=== PATIENT | female | born 1950 | race Caucasian/White ===

== ENCOUNTER 2017-05-10 17:34 | Emergency (ER) | payer MEDICARE ==
[~2017-05-10] VITALS: Ht 167.6 cm; Wt 64.0 kg
[~2017-05-10 17:34] MED LIST: AMIT50 PO; AMIT75 PO; BENTYL20 MG PO; Bactrim Ds Tab1 EACH PO; Bentyl10 MG PO; CHOL10002 PO; CLON1 PO; Cipro500 MG PO; Crutch1 EACH MISC; DICL25ER PO; DULO30 PO; DULO60 PO; ESTMEDA PO; ESTR2 PO; GABA300 PO; HYDACE5325 PO; HYDACE7.5 PO; HYOS.125 SL; LACT10SY PO; MEDR2.5 PO; MEDR5 PO; NAPR500 PO; Norco 5-325 Ta1 EACH PO; OMEP40CA12 PO; OXYACE5T PO; Omeprazole20 M1 PO; PANT40 PO; PROM25 PO; PROP10 PO; Percocet 10-321 EACH PO; Percocet 5-3251 EACH PO; Pyridium200 MG PO; RANI150 PO; RXTRAM50 PO; SULTRIDS PO; TOPI100 PO; Ultram50 MG PO; VALACYCLOVIR1000 MG PO; [UNRECOGNIZED DRUG - REMARK]
== END 2017-05-10 21:01 | disposition home or self-care (01) ==
LOC: ER 17:34
DX: S61.210A Laceration without foreign body of right index finger without damage to nail, initial encounter (principal); Z88.5 Allergy status to narcotic agent; Z91.09 Other allergy status, other than to drugs and biological substances; Z88.6 Allergy status to analgesic agent; Z79.899 Other long term (current) drug therapy; W26.0XXA Contact with knife, initial encounter
CPT/HCPCS: 12001; 99282

== ENCOUNTER 2017-06-29 11:27 | Emergency (ER) | payer MEDICARE ==
[~2017-06-29] VITALS: Ht 167.6 cm; Wt 63.5 kg
== END 2017-06-29 12:32 | disposition home or self-care (01) ==
LOC: ER 11:27
DX: S90.122A Contusion of left lesser toe(s) without damage to nail, initial encounter (principal); Z88.5 Allergy status to narcotic agent; Z91.09 Other allergy status, other than to drugs and biological substances; Z88.8 Allergy status to other drugs, medicaments and biological substances; Z79.899 Other long term (current) drug therapy; Z86.73 Personal history of transient ischemic attack (TIA), and cerebral infarction without residual deficits; W22.8XXA Striking against or struck by other objects, initial encounter
CPT/HCPCS: 73660; 99283

== ENCOUNTER 2017-07-18 17:33 | Inpatient (IN) | payer MEDICARE ==
[~2017-07-18] VITALS: Ht 165.1 cm; Wt 68.4 kg
[2017-07-18 17:50] LABS: Calcium, Ionized (POC) 1.13 mmol/L (1.10-1.46); Chloride (POC) 107 mmol/L (98-108); Creatinine (POC) 0.9 mg/dL (0.6-1.0); Glucose (ISTAT POC) 117 mg/dL (70-99); Hemoglobin (POC) 11.6 g/dL (12.0-16.0); Potassium (POC) 3.9 mmol/L (3.5-5.5); Sodium (POC) 139 mmol/L (135-148); Total CO2 (POC) 23 mmol/L (21-32)
[2017-07-18 18:03] LABS: BASOPHILS ABSOLUTE AUTO 0.03 K/mm3 (0.00-0.23); BASOPHILS PERCENT AUTO 1 % (0-2); EOSINOPHILS ABSOLUTE AUTO 0.07 K/mm3 (0.00-0.68); EOSINOPHILS PERCENT AUTO 1 % (0-6); Hematocrit 37.8 % (33.0-51.0); IMMATURE GRAN ABSOLUTE AUTO 0.01 K/mm3 (0.00-0.10); IMMATURE GRAN PERCENT AUTO 0 % (0-1); LYMPHOCYTES ABSOLUTE AUTO 1.08 K/mm3 (0.84-5.20); LYMPHOCYTES PERCENT AUTO 19 % (21-46); MONOCYTES ABSOLUTE AUTO 0.35 K/mm3 (0.16-1.47); MONOCYTES PERCENT AUTO 6 % (4-13); Mean Corpuscular HGB 29.9 pg (26.0-34.0); Mean Corpuscular HGB Conc 31.7 g/dL (31.5-36.5); Mean Corpuscular Volume 94 fL (80-100); Mean Platelet Volume 9.8 fL (9.1-12.4); NEUTROPHILS ABSOLUTE AUTO 4.12 K/mm3 (1.96-9.15); NEUTROPHILS PERCENT AUTO 73 % (41-73); Platelet Count 149 K/mm3 (150-400); RDW Coefficient Variation 13.1 % (11.7-14.2); RDW Standard Deviation 45.1 fL (35.1-46.3); Red Blood Cell Count 4.02 M/mm3 (3.80-5.20); White Blood Cell Count 5.66 K/mm3 (4.00-11.30)
[2017-07-18 18:08] LABS: PCO2 Arterial 26.2 mmHg (35-45); PO2 Arterial 161 mmHg (80-100); pH Blood Arterial 7.51 (7.35-7.45)
[2017-07-18 18:16] LABS: Alanine Aminotransfer (ALT/SGP 24 U/L (12-78); Albumin, Blood 3.3 g/dL (3.4-5.0); Alk Phos 92 U/L (50-136); Anion Gap 9 mmol/L (6-16); Aspartate Aminotrans (AST/SGOT 20 U/L (12-37); Bilirubin, Total 0.3 mg/dL (0.1-1.0); Blood Urea Nitrogen 9 mg/dL (8-24); Bun/Creatinine Ratio 9.9 (12.0-20.0); CO2, Blood 23 mmol/L (21-32); Calcium, Blood 8.1 mg/dL (8.5-10.1); Chloride, Blood 110 mmol/L (98-108); Creatinine, Blood 0.91 mg/dL (0.40-1.00); Ethanol (Alcohol), Blood, Med <3 mg/dL; Globulin, Blood 3.3 g/dL (2.2-4.0); Glomerular Filtration Rate >60 (60-); Glucose, Blood 114 mg/dL (70-99); Salicylate <1.7 mg/dL (2.8-20.0); Sodium, Blood 142 mmol/L (136-145); Total Protein, Blood 6.6 g/dL (6.4-8.2); Troponin I <0.015 ng/mL (0.000-0.040)
[2017-07-18 18:24] LABS: Acetaminophen, Random <2.0 ug/mL (10.0-30.0)
[2017-07-18 18:32] LABS: Source, Urine Catheter
[2017-07-18 18:44] LABS: Appearance, Urine Clear (Clear); Bilirubin, Urine Neg (Neg); Blood, Urine Neg (Neg); Color, Urine Yellow (P-Yellow); Glucose Qualitative, Urine Neg (Neg); Ketones, Urine Neg (Neg); Leukocyte Esterase, Urine Neg (Neg); Nitrite, Urine Neg (Neg); Protein, Urine Neg (Neg); Urobilinogen, Urine NORM (Normal)
[2017-07-18 19:03] LABS: U Amphetamine Screen Not Detected; U Barbituate Screen Not Detected; U Benzodiazapine Screen Not Detected; U Buprenorphine Screen Not Detected; U Cannabinoids Screen Not Detected; U Cocaine Screen Not Detected; U Methadone Screen Not Detected; U Methamphetamine Screen Not Detected; U Opiates Screen Not Detected; U Oxycodone Screen Not Detected; U Phencyclidine Screen Not Detected; U Propoxyphene Screen Not Detected
[2017-07-18 21:40] LABS: PCO2 Arterial 30.2 mmHg (35-45); pH Blood Arterial 7.52 (7.35-7.45)
[2017-07-18 21:41] LABS: PO2 Arterial 82.8 mmHg (80-100)
[2017-07-18 23:26] LABS: Magnesium, Blood 2.2 mg/dL (1.6-2.4)
[2017-07-19 03:32] LABS: BASOPHILS ABSOLUTE AUTO 0.01 K/mm3 (0.00-0.23); BASOPHILS PERCENT AUTO 0 % (0-2); EOSINOPHILS ABSOLUTE AUTO 0.01 K/mm3 (0.00-0.68); EOSINOPHILS PERCENT AUTO 0 % (0-6); Hematocrit 33.3 % (33.0-51.0); Hemoglobin 10.8 g/dL (11.5-16.0); IMMATURE GRAN ABSOLUTE AUTO 0.02 K/mm3 (0.00-0.10); IMMATURE GRAN PERCENT AUTO 0 % (0-1); LYMPHOCYTES ABSOLUTE AUTO 0.78 K/mm3 (0.84-5.20); LYMPHOCYTES PERCENT AUTO 16 % (21-46); MONOCYTES PERCENT AUTO 6 % (4-13); Mean Corpuscular HGB 29.8 pg (26.0-34.0); Mean Corpuscular HGB Conc 32.4 g/dL (31.5-36.5); Mean Corpuscular Volume 92 fL (80-100); Mean Platelet Volume 9.9 fL (9.1-12.4); NEUTROPHILS ABSOLUTE AUTO 3.83 K/mm3 (1.96-9.15); NEUTROPHILS PERCENT AUTO 77 % (41-73); Platelet Count 139 K/mm3 (150-400); RDW Coefficient Variation 13.3 % (11.7-14.2); RDW Standard Deviation 44.9 fL (35.1-46.3); Red Blood Cell Count 3.62 M/mm3 (3.80-5.20); White Blood Cell Count 4.95 K/mm3 (4.00-11.30)
[2017-07-19 03:53] LABS: Alanine Aminotransfer (ALT/SGP 21 U/L (12-78); Albumin, Blood 2.7 g/dL (3.4-5.0); Albumin/Globulin Ratio 0.9 (0.8-1.8); Alk Phos 76 U/L (50-136); Anion Gap 8 mmol/L (6-16); Aspartate Aminotrans (AST/SGOT 16 U/L (12-37); Bilirubin, Total 0.5 mg/dL (0.1-1.0); Blood Urea Nitrogen 7 mg/dL (8-24); Bun/Creatinine Ratio 8.7 (12.0-20.0); CO2, Blood 24 mmol/L (21-32); Calcium, Blood 7.3 mg/dL (8.5-10.1); Chloride, Blood 109 mmol/L (98-108); Creatinine, Blood 0.81 mg/dL (0.40-1.00); Glomerular Filtration Rate >60 (60-); Glucose, Blood 120 mg/dL (70-99); Potassium, Blood 3.6 mmol/L (3.5-5.5); Sodium, Blood 141 mmol/L (136-145); Total Protein, Blood 5.7 g/dL (6.4-8.2)
[2017-07-19 05:19] LABS: PCO2 Arterial 29.8 mmHg (35-45); PO2 Arterial 82.5 mmHg (80-100); pH Blood Arterial 7.56 (7.35-7.45)
[2017-07-19 13:01] LABS: Magnesium, Blood 2.1 mg/dL (1.6-2.4); Potassium, Blood 3.4 mmol/L (3.5-5.5)
[2017-07-20 04:09] LABS: Anion Gap 6 mmol/L (6-16); Blood Urea Nitrogen 5 mg/dL (8-24); Bun/Creatinine Ratio 5.2 (12.0-20.0); CO2, Blood 24 mmol/L (21-32); Calcium, Blood 7.3 mg/dL (8.5-10.1); Chloride, Blood 118 mmol/L (98-108); Creatinine, Blood 0.95 mg/dL (0.40-1.00); Glomerular Filtration Rate >60 (60-); Glucose, Blood 83 mg/dL (70-99); Potassium, Blood 3.9 mmol/L (3.5-5.5); Sodium, Blood 148 mmol/L (136-145)
== END 2017-07-22 15:52 | DRG 917 ==
LOC: ER 17:33 → ICUW 17:34 → MEDS 07-20 16:00
PROVIDERS: Emergency Medicine; Internal Medicine; Internal Medicine Pulmonary Disease
PROC: 5A1935Z Respiratory Ventilation, Less than 24 Consecutive Hours (ICD-10-PCS; principal; 2017-07-18)
PROC: 0BH17EZ Insertion of Endotracheal Airway into Trachea, Via Natural or Artificial Opening (ICD-10-PCS; 2017-07-18)
PROC: 3E0234Z Introduction of Serum, Toxoid and Vaccine into Muscle, Percutaneous Approach (ICD-10-PCS; 2017-07-18)
DX: T43.012A Poisoning by tricyclic antidepressants, intentional self-harm, initial encounter (principal); J96.00 Acute respiratory failure, unspecified whether with hypoxia or hypercapnia; F32.9 Major depressive disorder, single episode, unspecified; F41.9 Anxiety disorder, unspecified; Z23 Encounter for immunization; I10 Essential (primary) hypertension; F60.9 Personality disorder, unspecified
CPT/HCPCS: 31720; 36415; 36600; 51702; 70450; 71045; 71046; 72125; 80047; 80048; 80053; 81003; 81025; 82803; 83735; 84132; 84145; 84443; 84484; 85014; 85025; 93005; 93010; 94002; 94003; 94667; 96361; 96374; 96375; 96376; 99291; 99292; G0480; J0330; J1650; J2001; J2060; J2250; J3480; J7030; J7070; J7120

== ENCOUNTER 2017-09-14 21:00 | Emergency (ER) | payer MEDICARE ==
[~2017-09-14] VITALS: Ht 167.6 cm; Wt 63.5 kg
[2017-09-14 21:46] LABS: BASOPHILS ABSOLUTE AUTO 0.05 K/mm3 (0.00-0.23); BASOPHILS PERCENT AUTO 1 % (0-2); EOSINOPHILS ABSOLUTE AUTO 0.13 K/mm3 (0.00-0.68); EOSINOPHILS PERCENT AUTO 2 % (0-6); Hematocrit 41.9 % (33.0-51.0); Hemoglobin 14.2 g/dL (11.5-16.0); IMMATURE GRAN ABSOLUTE AUTO 0.01 K/mm3 (0.00-0.10); IMMATURE GRAN PERCENT AUTO 0 % (0-1); LYMPHOCYTES ABSOLUTE AUTO 1.86 K/mm3 (0.84-5.20); LYMPHOCYTES PERCENT AUTO 31 % (21-46); MONOCYTES ABSOLUTE AUTO 0.52 K/mm3 (0.16-1.47); MONOCYTES PERCENT AUTO 9 % (4-13); Mean Corpuscular HGB 31.3 pg (26.0-34.0); Mean Corpuscular HGB Conc 33.9 g/dL (31.5-36.5); Mean Corpuscular Volume 92 fL (80-100); Mean Platelet Volume 10.4 fL (9.1-12.4); NEUTROPHILS PERCENT AUTO 58 % (41-73); Platelet Count 208 K/mm3 (150-400); RDW Coefficient Variation 13.2 % (11.7-14.2); RDW Standard Deviation 45.1 fL (35.1-46.3); Red Blood Cell Count 4.54 M/mm3 (3.80-5.20); White Blood Cell Count 6.07 K/mm3 (4.00-11.30)
[2017-09-14 22:05] LABS: Albumin/Globulin Ratio 1.1 (0.8-1.8); Bilirubin, Total 0.8 mg/dL (0.1-1.0); Bun/Creatinine Ratio 9.3 (12.0-20.0); Calcium, Blood 9.3 mg/dL (8.5-10.1); Creatinine, Blood 1.07 mg/dL (0.40-1.00); Globulin, Blood 3.6 g/dL (2.2-4.0); Potassium, Blood 3.4 mmol/L (3.5-5.5); Total Protein, Blood 7.6 g/dL (6.4-8.2)
[2017-09-14 22:55] LABS: Source, Urine Clean Catch
[2017-09-14 22:59] LABS: Bilirubin, Urine Neg (Neg); Blood, Urine 1+ (Neg); Glucose Qualitative, Urine Neg (Neg); Ketones, Urine 3+ (Neg); Leukocyte Esterase, Urine 1+ (Neg); Nitrite, Urine Neg (Neg); Protein, Urine 1+ (Neg); Urobilinogen, Urine 1+ (Normal)
[2017-09-14 23:04] LABS: Appearance, Urine Clear (Clear); Color, Urine Amber (P-Yellow)
[2017-09-14 23:05] LABS: Bacteria Few /hpf; Red Blood Cells, Urine Rare /hpf (0-2); Squamous Epithelial Cells Few /hpf (Few)
[2017-09-14] MEDS ORDERED: Zofran Odt4 MG SL (23:56)
== END 2017-09-15 00:22 | disposition home or self-care (01) ==
LOC: ER 21:00
PROVIDERS: Emergency Medicine
DX: R11.0 Nausea (principal); G45.9 Transient cerebral ischemic attack, unspecified; F32.9 Major depressive disorder, single episode, unspecified; Z88.5 Allergy status to narcotic agent; Z88.6 Allergy status to analgesic agent; Z91.09 Other allergy status, other than to drugs and biological substances; Z79.899 Other long term (current) drug therapy; Z98.890 Other specified postprocedural states
CPT/HCPCS: 36415; 80053; 81001; 83690; 85025; 87086; 96374; 99283; J2405

== ENCOUNTER → 2018-04-02 | Outpatient (CLI) | payer MEDICARE ==
[~2018-04-02] MED LIST changes: +Zofran Odt4 MG SL
[2018-04-04 15:07] LABS: HPV 16 Negative (Negative); HPV 18 Negative (Negative); HPV OTHER HR TYPES Negative (Negative)
== END | disposition home or self-care (01) ==
LOC: LAB SHORT 11:52 → LAB 11:52
PROVIDERS: Obstetrics & Gynecology
DX: Z01.419 Encounter for gynecological examination (general) (routine) without abnormal findings (principal)
CPT/HCPCS: 87624; G0123

== ENCOUNTER → 2018-06-02 | Outpatient (CLI) | payer MEDICARE | LOC: PLD 07:56 → LAB SHORT 07:56 | DX: N85.00 Endometrial hyperplasia, unspecified (principal) | CPT/HCPCS: 88305 ==

== ENCOUNTER 2018-08-10 15:45 | Emergency (ER) | payer MEDICARE ==
[~2018-08-10] VITALS: Ht 165.1 cm; Wt 72.6 kg
[2018-08-10] MEDS ORDERED: ESTRADIOL1 MG PO (16:50)
== END 2018-08-10 16:56 | disposition home or self-care (01) ==
LOC: ER 15:45
DX: S51.812A Laceration without foreign body of left forearm, initial encounter (principal); W22.8XXA Striking against or struck by other objects, initial encounter; Z88.5 Allergy status to narcotic agent; Z88.8 Allergy status to other drugs, medicaments and biological substances; Z79.899 Other long term (current) drug therapy; Z86.73 Personal history of transient ischemic attack (TIA), and cerebral infarction without residual deficits; F32.9 Major depressive disorder, single episode, unspecified; K21.9 Gastro-esophageal reflux disease without esophagitis
CPT/HCPCS: 12002; 90471; 90714; 99282-25

== ENCOUNTER 2018-09-13 16:38 | Emergency (ER) | payer MEDICARE ==
[~2018-09-13] VITALS: Ht 165.1 cm; Wt 73.5 kg
[~2018-09-13 16:38] MED LIST changes: +ESTRADIOL1 MG PO
[2018-09-13] MEDS ORDERED: ALEN70 PO (17:04)
[2018-09-13] MEDS ORDERED: D MANNOSE PO (17:04)
[2018-09-13] MEDS ORDERED: Senna8.6 MG PO (17:04)
== END 2018-09-13 17:19 | disposition home or self-care (01) ==
LOC: ER 16:38
DX: S30.0XXA Contusion of lower back and pelvis, initial encounter (principal); F32.9 Major depressive disorder, single episode, unspecified; K21.9 Gastro-esophageal reflux disease without esophagitis; Z88.5 Allergy status to narcotic agent; Z88.6 Allergy status to analgesic agent; Z79.899 Other long term (current) drug therapy; Z86.73 Personal history of transient ischemic attack (TIA), and cerebral infarction without residual deficits; W19.XXXA Unspecified fall, initial encounter
CPT/HCPCS: 72220; 99283-25

== ENCOUNTER 2018-12-02 15:04 | Emergency (ER) | payer MEDICARE ==
[~2018-12-02] VITALS: Ht 165.1 cm; Wt 71.7 kg
[~2018-12-02 15:04] MED LIST changes: +ALEN70 PO; +D MANNOSE PO; +Senna8.6 MG PO
[2018-12-02] MEDS ORDERED: Roxicodone5 MG PO (16:18)
[2018-12-02] MEDS ORDERED: Silvadene20 GM TOP (16:19)
== END 2018-12-02 16:25 | disposition home or self-care (01) ==
LOC: ER 15:04
DX: T21.22XA Burn of second degree of abdominal wall, initial encounter (principal); T31.0 Burns involving less than 10% of body surface; X11.8XXA Contact with other hot tap-water, initial encounter; Z86.73 Personal history of transient ischemic attack (TIA), and cerebral infarction without residual deficits; F32.9 Major depressive disorder, single episode, unspecified; Z88.5 Allergy status to narcotic agent; Z88.8 Allergy status to other drugs, medicaments and biological substances; Z79.899 Other long term (current) drug therapy
CPT/HCPCS: 16020; 96372-59; 99283-25; J1170

== ENCOUNTER 2018-12-07 16:01 | Emergency (ER) | payer MEDICARE ==
[~2018-12-07] VITALS: Ht 165.1 cm; Wt 70.8 kg
[~2018-12-07 16:01] MED LIST changes: +Roxicodone5 MG PO; +Silvadene20 GM TOP
[2018-12-07] MEDS ORDERED: CEPH500 PO (16:46)
== END 2018-12-07 17:06 | disposition home or self-care (01) ==
LOC: ER 16:01
DX: T21.12XD Burn of first degree of abdominal wall, subsequent encounter (principal); T31.0 Burns involving less than 10% of body surface; X08.8XXD Exposure to other specified smoke, fire and flames, subsequent encounter; Z88.5 Allergy status to narcotic agent; Z88.8 Allergy status to other drugs, medicaments and biological substances; Z79.899 Other long term (current) drug therapy; Z86.73 Personal history of transient ischemic attack (TIA), and cerebral infarction without residual deficits; F32.9 Major depressive disorder, single episode, unspecified
CPT/HCPCS: 99282

== ENCOUNTER 2019-01-06 13:39 | Emergency (ER) | payer MEDICARE ==
[~2019-01-06 13:39] MED LIST changes: +CEPH500 PO
== END 2019-01-06 14:44 | disposition left against medical advice (07) ==
LOC: ER 13:39
DX: Z53.21 Procedure and treatment not carried out due to patient leaving prior to being seen by health care provider (principal)

== ENCOUNTER 2019-01-14 15:27 | Emergency (ER) | payer MEDICARE ==
[~2019-01-14] VITALS: Ht 165.1 cm; Wt 69.0 kg
[2019-01-14] MEDS ORDERED: Roxicodone5 MG PO (16:41)
== END 2019-01-14 17:02 | disposition home or self-care (01) ==
LOC: ER 15:27
DX: T23.032A Burn of unspecified degree of multiple left fingers (nail), not including thumb, initial encounter (principal); T31.0 Burns involving less than 10% of body surface; F32.9 Major depressive disorder, single episode, unspecified; Z86.73 Personal history of transient ischemic attack (TIA), and cerebral infarction without residual deficits; Z88.5 Allergy status to narcotic agent; Z88.8 Allergy status to other drugs, medicaments and biological substances; Z79.899 Other long term (current) drug therapy; X12.XXXA Contact with other hot fluids, initial encounter
CPT/HCPCS: 16020; 96372-59; 99283-25; J1170

== ENCOUNTER → 2019-02-24 | Outpatient (CLI) | payer MEDICARE | END | disposition home or self-care (01) | LOC: PLD 13:15 → LAB SHORT 13:15 | DX: N85.01 Benign endometrial hyperplasia (principal) | CPT/HCPCS: 88305 ==

== ENCOUNTER 2019-04-09 06:17 | Day surgery (SDC) | payer MEDICARE ==
[~2019-04-09] VITALS: Ht 165.1 cm; Wt 70.5 kg
[~2019-04-09 06:17] MED LIST changes: +PROG100 PO
--- NOTE | 2019-04-09 06:40 | NUR ---
Ambulatory in Day Surgery History, Chart, Medications and Allergies reviewed before start of procedure.Lungs clear T/O to Auscultation.
--- NOTE | 2019-04-09 19:05 | NUR ---
SHIFT SUMMARY PT ARRIVED THIS AFTERNOON S/P LAVH. FENTYNAL PRECISION CROP MANAGER WAS STARTED AND INITIALLY CONTROLLED PT'S PAIN. THIS EVENING, PT REPORTED THAT PAIN IS STARTING TO WORSEN, EVEN WITH THE USE OF THE PRECISION CROP MANAGER. PT HAS KPAD IN PLACE TO HELP. INCISION SITES REMAIN C/D/I. PT WAS ABLE TO GET UP WITH SBA AND AMBULATE IN ROOM THIS AFTERNOON, WITH NO C/O WORSENING DISCOMFORT. FRANCIA DRAINING ON ANNA MARIE PAD.
[2019-04-10 04:48] LABS: BASOPHILS ABSOLUTE AUTO 0.01 K/mm3 (0.00-0.23); BASOPHILS PERCENT AUTO 0 % (0-2); EOSINOPHILS ABSOLUTE AUTO 0.01 K/mm3 (0.00-0.68); EOSINOPHILS PERCENT AUTO 0 % (0-6); Hematocrit 33.1 % (33.0-51.0); Hemoglobin 10.3 g/dL (11.5-16.0); IMMATURE GRAN ABSOLUTE AUTO 0.01 K/mm3 (0.00-0.10); IMMATURE GRAN PERCENT AUTO 0 % (0-1); LYMPHOCYTES PERCENT AUTO 16 % (21-46); MONOCYTES PERCENT AUTO 7 % (4-13); Mean Corpuscular HGB 29.2 pg (26.0-34.0); Mean Corpuscular HGB Conc 31.1 g/dL (31.5-36.5); Mean Corpuscular Volume 94 fL (80-100); Mean Platelet Volume 10.5 fL (9.1-12.4); NEUTROPHILS ABSOLUTE AUTO 5.88 K/mm3 (1.96-9.15); NEUTROPHILS PERCENT AUTO 77 % (41-73); Platelet Count 175 K/mm3 (150-400); RDW Coefficient Variation 13.8 % (11.7-14.2); RDW Standard Deviation 46.9 fL (35.1-46.3); Red Blood Cell Count 3.53 M/mm3 (3.80-5.20); White Blood Cell Count 7.61 K/mm3 (4.00-11.30)
--- NOTE | 2019-04-10 05:45 | NUR ---
SHIFT SUMMARY PT HAS FENTANYL SAP MANAGER PUMP. PT REPORTS FENTANYL STARTING TO BECOME NOT EFFECTIVE FOR PAIN MANAGEMENT BUT "WILL DO FOR NOW". SANTIAGO CATH PATENT AND DRAINING CLEAR YELLOW URINE, TO D/C THIS AM. LR RUNNING @ 125 ML/HR X2 BAGS, FINISHING UP ON 2ND BAG NOW. POST OP VSS. LAP SITES TO ABD X3 GAUZE DRESSING C/D/I. SCANT BLOOD TO ANNA MARIE PAD. NO OTHER CHANGES. WILL CONT TO MONITOR AND PROVIDE CARE UNTIL PRESUMED BY ONCOMING RN.
--- NOTE | 2019-04-10 06:45 | NUR ---
SANTIAGO D/C'D AT THIS TIME BY KINSEY SULLIVAN 2. D/C WNL. CLEAR YELLOW URINE IN BAG. SMALL AMOUNT LIGHT PINK DRAINAGE ON ANNA MARIE PAD.
--- NOTE | 2019-04-10 07:05 | NUR ---
RECVD REPORT FROM PREVIOUS SHIFT RN. PT LYING IN BED, IN ROOM, A/O X 4, PLEASANT/COOPERATIVE. CALL LIGHT WITHIN REACH, BED RAILS UP X 2, BED IN LOWEST POSITION
--- NOTE | 2019-04-10 11:32 | NUR ---
PT VOIDING, AMBULATING, STATES PAIN CONTROLLED BETTER WITH CHANGES MADE BY DR SERRANO
[2019-04-10] MEDS ORDERED: Percocet 5-3251 EACH PO (12:43)
[2019-04-10] MEDS ORDERED: IBUP400 PO (12:44)
--- NOTE | 2019-04-10 13:43 | NUR ---
discharge: provided pt and spouse with discharge instructions, written prescription and printed material. peripheral IV removed WNL. pt a/0 to baseline, vss, voiding, tolerating PO intake, pain controlled to her toleration. pt's transferred pt's belongings to awaiting vehicle. pt transferred to vehicle via wheelchair.
== END 2019-04-10 13:35 | disposition home or self-care (01) ==
LOC: ORSCMMR 06:17 → ORD 07:30 → SURS 10:05 → ORSCMMR 04-10 13:35
PROVIDERS: Obstetrics & Gynecology
PROC: 0UT2FZZ Resection of Bilateral Ovaries, Via Natural or Artificial Opening With Percutaneous Endoscopic Assistance (ICD-10-PCS; principal; 2019-04-09 07:30)
PROC: 0UT7FZZ Resection of Bilateral Fallopian Tubes, Via Natural or Artificial Opening With Percutaneous Endoscopic Assistance (ICD-10-PCS; principal; 2019-04-09 07:30)
PROC: 0UT9FZZ Resection of Uterus, Via Natural or Artificial Opening With Percutaneous Endoscopic Assistance (ICD-10-PCS; principal; 2019-04-09 07:30)
DX: N95.0 Postmenopausal bleeding (principal); D64.9 Anemia, unspecified; Z23 Encounter for immunization
CPT/HCPCS: 36415; 85025; 88307; 90686; G0008; J0171; J0690; J1100; J1885; J2250; J2405; J2704; J2710; J3010; J7120

== ENCOUNTER 2019-05-16 07:52 | Emergency (ER) | payer MEDICARE ==
[~2019-05-16] VITALS: Ht 165.1 cm; Wt 70.3 kg
[~2019-05-16 07:52] MED LIST changes: +IBUP400 PO
[2019-05-16] MEDS ORDERED: CEPH500 PO (08:43)
== END 2019-05-16 09:01 | disposition home or self-care (01) ==
LOC: ER 07:52
DX: S61.012A Laceration without foreign body of left thumb without damage to nail, initial encounter (principal); F32.9 Major depressive disorder, single episode, unspecified; Z88.5 Allergy status to narcotic agent; Z91.09 Other allergy status, other than to drugs and biological substances; Z88.8 Allergy status to other drugs, medicaments and biological substances; Z79.899 Other long term (current) drug therapy; Z86.73 Personal history of transient ischemic attack (TIA), and cerebral infarction without residual deficits; W26.0XXA Contact with knife, initial encounter
CPT/HCPCS: 73140; 99283-25; A9270-GY

== ENCOUNTER 2019-10-27 14:55 | Emergency (ER) | payer MEDICARE, OTHER ==
[~2019-10-27] VITALS: Ht 165.1 cm; Wt 69.8 kg
[~2019-10-27 14:55] MED LIST changes: +Pepcid40 MG PO
== END 2019-10-27 16:47 | disposition home or self-care (01) ==
LOC: ER 14:55
DX: J02.9 Acute pharyngitis, unspecified (principal); B34.9 Viral infection, unspecified; Z20.828 Contact with and (suspected) exposure to other viral communicable diseases; F32.9 Major depressive disorder, single episode, unspecified; F41.9 Anxiety disorder, unspecified; Z88.5 Allergy status to narcotic agent; Z91.09 Other allergy status, other than to drugs and biological substances; Z88.8 Allergy status to other drugs, medicaments and biological substances; Z79.899 Other long term (current) drug therapy; Z86.73 Personal history of transient ischemic attack (TIA), and cerebral infarction without residual deficits
CPT/HCPCS: 87081; 87430; 99282; J1100; U0003

== ENCOUNTER 2020-01-02 14:50 | Emergency (ER) | payer MEDICARE ==
[~2020-01-02] VITALS: Ht 165.1 cm; Wt 64.9 kg
[2020-01-02 15:20] LABS: BASOPHILS ABSOLUTE AUTO 0.04 K/mm3 (0.00-0.23); BASOPHILS PERCENT AUTO 1 % (0-2); EOSINOPHILS PERCENT AUTO 2 % (0-6); Hematocrit 41.8 % (33.0-51.0); Hemoglobin 13.3 g/dL (11.5-16.0); IMMATURE GRAN ABSOLUTE AUTO 0.01 K/mm3 (0.00-0.10); IMMATURE GRAN PERCENT AUTO 0 % (0-1); LYMPHOCYTES ABSOLUTE AUTO 1.62 K/mm3 (0.84-5.20); LYMPHOCYTES PERCENT AUTO 32 % (21-46); MONOCYTES ABSOLUTE AUTO 0.35 K/mm3 (0.16-1.47); MONOCYTES PERCENT AUTO 7 % (4-13); Mean Corpuscular HGB Conc 31.8 g/dL (31.5-36.5); Mean Corpuscular Volume 91 fL (80-100); Mean Platelet Volume 11.3 fL (9.1-12.4); NEUTROPHILS ABSOLUTE AUTO 2.94 K/mm3 (1.96-9.15); NEUTROPHILS PERCENT AUTO 58 % (41-73); Platelet Count 204 K/mm3 (150-400); Red Blood Cell Count 4.59 M/mm3 (3.80-5.20); White Blood Cell Count 5.06 K/mm3 (4.00-11.30)
[2020-01-02 15:43] LABS: Alanine Aminotransfer (ALT/SGP 22 U/L (12-78); Albumin, Blood 3.8 g/dL (3.4-5.0); Alk Phos 114 U/L (50-136); Anion Gap 10 mmol/L (6-16); Aspartate Aminotrans (AST/SGOT 17 U/L (12-37); Bilirubin, Total 0.4 mg/dL (0.1-1.0); Blood Urea Nitrogen 9 mg/dL (8-24); Bun/Creatinine Ratio 9.9 (12.0-20.0); CO2, Blood 24 mmol/L (21-32); Chloride, Blood 109 mmol/L (98-108); Creatinine, Blood 0.91 mg/dL (0.40-1.00); Globulin, Blood 3.9 g/dL (2.2-4.0); Glomerular Filtration Rate >60 (60-); Glucose, Blood 83 mg/dL (70-99); Potassium, Blood 3.4 mmol/L (3.5-5.5); Sodium, Blood 143 mmol/L (136-145); Total Protein, Blood 7.7 g/dL (6.4-8.2); Troponin I <0.015 ng/mL (0.000-0.040)
== END 2020-01-02 17:55 | disposition home or self-care (01) ==
LOC: ER 14:50
PROVIDERS: Emergency Medicine
DX: R55 Syncope and collapse (principal); Z88.5 Allergy status to narcotic agent; Z91.09 Other allergy status, other than to drugs and biological substances; Z79.899 Other long term (current) drug therapy; F32.9 Major depressive disorder, single episode, unspecified; Z86.73 Personal history of transient ischemic attack (TIA), and cerebral infarction without residual deficits; Z98.890 Other specified postprocedural states
CPT/HCPCS: 36415; 71046; 80053; 84484; 85025; 93005; 93010; 99284-25

== ENCOUNTER 2020-03-07 12:19 | Emergency (ER) | payer MEDICARE ==
[2020-03-07] MEDS ORDERED: IBUP600 PO (15:37)
[2020-03-07] MEDS ORDERED: MORP15ER PO (15:37)
[2020-03-07] MEDS ORDERED: METPRE4DP PO (15:37)
[2020-03-07] MEDS ORDERED: KEFLEX500 MG PO (15:59)
== END 2020-03-07 12:30 | disposition left against medical advice (07) ==
LOC: ER 12:19
DX: Z53.21 Procedure and treatment not carried out due to patient leaving prior to being seen by health care provider (principal)

== ENCOUNTER 2020-03-07 13:14 | Emergency (ER) | payer MEDICARE ==
[~2020-03-07] VITALS: Ht 165.1 cm; Wt 64.0 kg
[2020-03-07 14:36] LABS: Source, Urine Voided
[2020-03-07 14:46] LABS: Bilirubin, Urine Neg (Neg); Glucose Qualitative, Urine Neg (Neg); Ketones, Urine Neg (Neg); Protein, Urine Neg (Neg); Urobilinogen, Urine NORM (Normal)
[2020-03-07 14:50] LABS: Appearance, Urine Hazy (Clear); Color, Urine Yellow (P-Yellow)
[2020-03-07 14:58] LABS: Leukocyte Esterase, Urine 1+ (Neg); Nitrite, Urine Pos (Neg)
[2020-03-07 14:59] LABS: Blood, Urine Neg (Neg)
[2020-03-07 15:00] LABS: Bacteria Many /hpf; Red Blood Cells, Urine 0-2 /hpf (0-2); Squamous Epithelial Cells Few /hpf (Few)
[2020-03-07] MEDS ORDERED: METPRE4DP PO (15:37)
[2020-03-07] MEDS ORDERED: IBUP600 PO (15:37)
[2020-03-07] MEDS ORDERED: MORP15ER PO (15:37)
[2020-03-07] MEDS ORDERED: KEFLEX500 MG PO (15:59)
== END 2020-03-07 16:02 | disposition home or self-care (01) ==
LOC: ER 13:14
PROVIDERS: Emergency Medicine
DX: N39.0 Urinary tract infection, site not specified (principal); M54.10 Radiculopathy, site unspecified; Z79.52 Long term (current) use of systemic steroids; Z79.899 Other long term (current) drug therapy
CPT/HCPCS: 72100; 81001; 87077; 87086; 87186; 99284-25; A9270-GY

== ENCOUNTER 2020-05-17 16:44 | Emergency (ER) | payer MEDICARE ==
[~2020-05-17] VITALS: Ht 165.1 cm; Wt 64.9 kg
[~2020-05-17 16:44] MED LIST changes: +IBUP600 PO; +KEFLEX500 MG PO; +METPRE4DP PO; +MORP15ER PO
== END 2020-05-17 17:20 | disposition left against medical advice (07) ==
LOC: ER 16:44
DX: R07.9 Chest pain, unspecified (principal); Z53.21 Procedure and treatment not carried out due to patient leaving prior to being seen by health care provider
CPT/HCPCS: 99284

== ENCOUNTER 2020-06-27 08:12 | Day surgery (SDC) | payer MEDICARE ==
--- NOTE | 2020-06-27 09:00 | NUR ---
PATIENT WAS SPOKEN TO IN RADIOLOGY WAITING ROOM ABOUT IODINE CONTRAST ALLERGY. PATIENT STATED SHE DID NOT COMPLETE THE IODINE ALLERGY PROTOCAL THAT WAS ORDERED, WHICH INCLUDED PREDNISONE AND DIPHENHYDRAMINE ORDERED BY DR ROSS. SHE ONLY HAD DEPHENHYDRAMINE, NO PREDNISONE. CALLED DR ROSS'S OFFICE AND WAS NOT ABLE TO SPEAK TO DR ROSS, OR ANOTHER ACCOUNT PROCESSOR. OFFICE STAFF TOLD ME THAT THE PLANNED CTA WOULD HAVE TO BE RESCHEDULED DUE TO NOT COMPLETING THE ORDERED IODINE CONTRAST ALLERGY PROTOCAL. WHEN THIS INFORMATION WAS RELATED TO THE PATIENT, SHE SAID SHE WAS UNHAPPY WITH NOT BEING TOLD SHE WAS SUPPOSED TO TAKE THE PREDNISONE AND WAS NEVER GIVEN A PRESCRIPTION FOR IT. SHE WAS INSTRUCED TO FOLLOW-UP WITH DR ROSS'S OFFICE IMMEDIATELY. PATIENT SAID SHE WOULD NOT BE CALLING DR ROSS'S OFFICE AND THAT SHE WOULD HAVE HER TEST IN [place]. THIS NURSE ENCOURAGED THAT PATIENT TO RE-CONSIDER DELAYING HER PROCEDURE FURTHER DUE TO THE IMPORTANCE OF THE TEST. AFTER THE PATIENT LEFT, THIS NURSE CALLED DR ROSS'S OFFICE A SECOND TIME TO COMMUNICATE THAT THE PATIENT WOULD NEED TO BE CONTACTED BY THE OFFICE TO MAKE A PLAN FOR RESCHEDULING THE CTA AND THAT SHE HAD STATED SHE WOULD NOT CALL THEM HERSELF.
== END 2020-06-27 23:07 | disposition home or self-care (01) ==
LOC: CT 08:12 → ORD 08:12 → ORSCMMR 08:13 → ORD 08:30
DX: I20.0 Unstable angina (principal); Z53.8 Procedure and treatment not carried out for other reasons

== ENCOUNTER 2020-08-24 15:11 | Emergency (ER) | payer MEDICARE ==
[~2020-08-24] VITALS: Ht 167.6 cm; Wt 88.5 kg
[2020-08-24] MEDS ORDERED: CYCL10 PO (17:46)
== END 2020-08-24 18:29 | disposition home or self-care (01) ==
LOC: ER 15:11
DX: S39.012A Strain of muscle, fascia and tendon of lower back, initial encounter (principal); S30.0XXA Contusion of lower back and pelvis, initial encounter; Z79.899 Other long term (current) drug therapy; Z88.5 Allergy status to narcotic agent; Z91.041 Radiographic dye allergy status
CPT/HCPCS: 72100; 73502; 99283-25

== ENCOUNTER 2020-11-08 13:09 | Inpatient (IN) | payer MEDICARE ==
[~2020-11-08] VITALS: Ht 167.6 cm; Wt 75.2 kg
[~2020-11-08 13:09] MED LIST changes: +CYCL10 PO
[2020-11-08 13:25] LABS: Calcium, Ionized (POC) 1.18 mmol/L (1.10-1.46); Chloride (POC) 108 mmol/L (98-108); Creatinine (POC) 1.2 mg/dL (0.6-1.0); Glucose (ISTAT POC) 129 mg/dL (70-99); Hemoglobin (POC) 10.2 g/dL (12.0-16.0); Potassium (POC) 3.7 mmol/L (3.5-5.5); Sodium (POC) 141 mmol/L (135-148); Total CO2 (POC) 23 mmol/L (21-32)
[2020-11-08 13:27] LABS: PCO2 Arterial 38.8 mmHg (35-45); PO2 Arterial 56.9 mmHg (80-100)
[2020-11-08] MEDS ORDERED: NEURONTIN300 MG PO (13:28)
[2020-11-08] MEDS ORDERED: Prinivil10 MG PO (13:28)
[2020-11-08] MEDS ORDERED: PANTOPRAZOLE SO40 M2 PO (13:29)
[2020-11-08] MEDS ORDERED: DULOXETINE HCL60 M1 PO (13:29)
[2020-11-08] MEDS ORDERED: ESTRADIOL0.5 MG PO (13:30)
[2020-11-08] MEDS ORDERED: Bentyl20 MG PO (13:30)
[2020-11-08 13:31] LABS: BASOPHILS ABSOLUTE AUTO 0.03 K/mm3 (0.00-0.23); BASOPHILS PERCENT AUTO 0 % (0-2); EOSINOPHILS PERCENT AUTO 1 % (0-6); Hematocrit 34.1 % (33.0-51.0); Hemoglobin 10.8 g/dL (11.5-16.0); IMMATURE GRAN ABSOLUTE AUTO 0.02 K/mm3 (0.00-0.10); IMMATURE GRAN PERCENT AUTO 0 % (0-1); LYMPHOCYTES ABSOLUTE AUTO 1.12 K/mm3 (0.84-5.20); LYMPHOCYTES PERCENT AUTO 16 % (21-46); MONOCYTES ABSOLUTE AUTO 0.36 K/mm3 (0.16-1.47); MONOCYTES PERCENT AUTO 5 % (4-13); Mean Corpuscular HGB Conc 31.7 g/dL (31.5-36.5); Mean Corpuscular Volume 95 fL (80-100); NEUTROPHILS ABSOLUTE AUTO 5.46 K/mm3 (1.96-9.15); NEUTROPHILS PERCENT AUTO 77 % (41-73); Platelet Count 200 K/mm3 (150-400); RDW Coefficient Variation 13.6 % (11.7-14.2); White Blood Cell Count 7.09 K/mm3 (4.00-11.30)
[2020-11-08 13:56] LABS: Alanine Aminotransfer (ALT/SGP 28 U/L (12-78); Albumin, Blood 2.9 g/dL (3.4-5.0); Albumin/Globulin Ratio 0.9 (0.8-1.8); Alk Phos 160 U/L (50-136); Anion Gap 6 mmol/L (6-16); Aspartate Aminotrans (AST/SGOT 24 U/L (12-37); Bilirubin, Total 0.3 mg/dL (0.1-1.0); Blood Urea Nitrogen 10 mg/dL (8-24); Bun/Creatinine Ratio 9.2 (12.0-20.0); CO2, Blood 24 mmol/L (21-32); Calcium, Blood 8.6 mg/dL (8.5-10.1); Chloride, Blood 113 mmol/L (98-108); Creatinine, Blood 1.09 mg/dL (0.40-1.00); Ethanol (Alcohol), Blood, Med <3 mg/dL; Globulin, Blood 3.2 g/dL (2.2-4.0); Glomerular Filtration Rate 50 (60-); Glucose, Blood 127 mg/dL (70-99); Potassium, Blood 3.8 mmol/L (3.5-5.5); Sodium, Blood 143 mmol/L (136-145); Total Protein, Blood 6.1 g/dL (6.4-8.2); Troponin I <0.015 ng/mL (0.000-0.040)
[2020-11-08 13:57] LABS: U Amphetamine Screen Not Detected; U Barbituate Screen Not Detected; U Benzodiazapine Screen Not Detected; U Buprenorphine Screen Not Detected; U Cannabinoids Screen Not Detected; U Cocaine Screen Not Detected; U Methadone Screen Not Detected; U Methamphetamine Screen Not Detected; U Opiates Screen DETECTED; U Oxycodone Screen DETECTED; U Phencyclidine Screen Not Detected; U Propoxyphene Screen Not Detected
[2020-11-08 14:15] LABS: Acetaminophen, Random 13.6 ug/mL (10.0-30.0); Salicylate <1.7 mg/dL (2.8-20.0)
[2020-11-08 18:56] LABS: Magnesium, Blood 2.3 mg/dL (1.6-2.4); Phosphorus, Blood 3.8 mg/dL (2.5-4.9)
[2020-11-08 21:45] LABS: Acetaminophen, Random <2.0 ug/mL (10.0-30.0); Alanine Aminotransfer (ALT/SGP 37 U/L (12-78); Albumin/Globulin Ratio 0.8 (0.8-1.8); Alk Phos 153 U/L (50-136); Anion Gap 8 mmol/L (6-16); Aspartate Aminotrans (AST/SGOT 17 U/L (12-37); Bilirubin, Total 0.4 mg/dL (0.1-1.0); Blood Urea Nitrogen 10 mg/dL (8-24); CO2, Blood 28 mmol/L (21-32); Calcium, Blood 8.7 mg/dL (8.5-10.1); Chloride, Blood 110 mmol/L (98-108); Creatinine, Blood 0.91 mg/dL (0.40-1.00); Globulin, Blood 3.6 g/dL (2.2-4.0); Glomerular Filtration Rate >60 (60-); Glucose, Blood 123 mg/dL (70-99); Potassium, Blood 4.4 mmol/L (3.5-5.5); Sodium, Blood 146 mmol/L (136-145); Total Protein, Blood 6.6 g/dL (6.4-8.2)
--- NOTE | 2020-11-09 02:30 | NUR ---
PT OBTUNDED PT IS RESPONSIVE TO PAIN AND CAN SAY ONE WORD SENTENCES. PT SATURATIONS ARE 100% ON 3L. PT RESPIRATIONS ARE EVEN AND UNLABORED.
--- NOTE | 2020-11-09 02:35 | NUR ---
SUICIDE REASSESSMENT PT AWOKE AT 0200 YELLING THAT HER ARM HURT. UPON ASSESSMENT HER IV WAS INFILTRATED. PT IS VERY ANNOYED BY STAFF. PT DOES NOT UNDERSTAND WHY SHE IS HERE AT THE HOSPITAL, OR WHAT HOSPITAL SHE IS IN. PT INSISTES THAT SHE DOES NOT WANT TO HURT ORSELF OF THAT SHE EVER DID. PT IS DEFENSIVE WHEN ASKED ORIENTATION QUESTIONS. PT IS SOMWHAT DEFIANT WITH CARE, EXAMPLED BY WANTING TRUMPET TAKEN OUT FROM NOSE AND TAKING OFF BANDAGES. BED IN LOWEST POSTION, BED ALARM ON, CAMERA MONITORING.
[2020-11-09 04:15] LABS: BASOPHILS ABSOLUTE AUTO 0.02 K/mm3 (0.00-0.23); BASOPHILS PERCENT AUTO 0 % (0-2); EOSINOPHILS ABSOLUTE AUTO 0.04 K/mm3 (0.00-0.68); EOSINOPHILS PERCENT AUTO 1 % (0-6); Hematocrit 33.7 % (33.0-51.0); Hemoglobin 10.9 g/dL (11.5-16.0); IMMATURE GRAN ABSOLUTE AUTO 0.01 K/mm3 (0.00-0.10); IMMATURE GRAN PERCENT AUTO 0 % (0-1); LYMPHOCYTES ABSOLUTE AUTO 0.71 K/mm3 (0.84-5.20); LYMPHOCYTES PERCENT AUTO 12 % (21-46); MONOCYTES ABSOLUTE AUTO 0.32 K/mm3 (0.16-1.47); MONOCYTES PERCENT AUTO 5 % (4-13); Mean Corpuscular HGB 29.9 pg (26.0-34.0); Mean Corpuscular HGB Conc 32.3 g/dL (31.5-36.5); Mean Corpuscular Volume 93 fL (80-100); Mean Platelet Volume 10.2 fL (9.1-12.4); NEUTROPHILS ABSOLUTE AUTO 5.05 K/mm3 (1.96-9.15); NEUTROPHILS PERCENT AUTO 82 % (41-73); Platelet Count 194 K/mm3 (150-400); RDW Coefficient Variation 13.8 % (11.7-14.2); RDW Standard Deviation 46.6 fL (35.1-46.3); Red Blood Cell Count 3.64 M/mm3 (3.80-5.20); White Blood Cell Count 6.15 K/mm3 (4.00-11.30)
--- NOTE | 2020-11-09 04:22 | NUR ---
PT PUT INTO RESTRAINTS AT 0200 PT AWOKE EXCLAIMING THAT HER ARM WAS HURTING, HER IV WAS INFILTRATED. PT WAS UPSET THAT SHE WAS IN THE HOSPITAL AND WANTED STAFF TO HER HER A PHONE TO CALL HER , WHEN THE STAFF REFUSED SHE SAID THAT SOMONE ALREADY TOLD HER SHE COULD HAVE ONE. THIS NURSE ORIENTED PT BUT SHE SAYS THAT SOMONE ELSE TOLD HER SHE WAS ON THE COAST. PT WOULD REPEAT "THERE YOU GO LYING AGAIN". PT COMPLAINED ABOUT HER THROAT HURTING DUE TO NOT HAVING WATER. THIS NURSE GAVE PT A BEDSIDE SWOLLOW ELVAULATION, WHICH SHE PAST AND WAS GIVEN WATER. PT THEN COMPLAINED ABOUT HAVING THE TELEMETRY MONITORING OFF AND TORE IT OFF. HOSPITALIST NOTIFIED AND SAID TO D/C TELE AND PUT PT ON A REGUALR DIET. PT THEN COMPLAINED ABOUT HER SANTIAGO HURTING. THIS WAS ALSO D/C. PT WAS AGITATED THAT HE BATHROOM WAS LOCKED AND SAID STAFF LIED ABOUT LOCKING THE BATHROOMS FOR ALL THE PATIENTS. PT THEN GOT UP TO GO TO THE BATHROOM BUT PROCEEDED TO TRY TO LEAVE THE ROOM. REX GUNN BLOCKED THE DOOR AND OFFERED TO OPEN THE BATHROOM AND GET THE PATIENT SOMETHING ELSE TO DRINK. PT TRIED TO RIP REX GUNN HAIR OFF HIS CHEST. REX AGAIN REDIRECTED PT WITHOUT SUCCESS. RODOLFO CALLED BY CARMEN SULLIVAN. WHEN SECURITY ARRIVED, PT AGREED TO USE THE RESTROOM. PT ASKED TO CLOSE THE DOOR AND WHEN THIS NURSE SAID THAT SHE COULDNT PT YELLED. WHEN THIS NURSE HELD THE DOOR OPEN, PT PUSHED THIS NURSE WITH BOTH HANDS. SECURITY CAME IN THE ROOM AND PT CONTINUED TO USE THE BATHROOM. WHILE THIS WAS HAPPENING CHARGE NURSE CAMEJO CALLED HOSPITALIST WHO ORDERED VEST AND BILATERAL WRIST RESTAINTS, ALONG WITH IM ZYPREXA. WHEN THE PT SAT ON THE BED, THIS NURSE EXPLAINED THAT HE BEHAVIOR WAS DANGEROUS TO STAFF AND THE PT HERSELF AND SHE WAS GOING TO BE RESTRAINED. THIS MADE THE PATIENT VERY ANGRY AND SHE WANTED TO REFUSE, THIS THE HELP OF REX STRICKLAND NICOLE AND SONI, PT WAS RESTRAINED. PT WAS GIVEN WATER CLOSE BY AND USED THE BED RINCON. AFTER A COUPLE MINUTES PT WAS ABLE TO GET HER L WRIST OUT OF HER RESTRAINT AND STARTED TO KICK AND SCREAM. AGAIN, NELL STRICKLAND SYNDNY AND LUCINA WAS ABLE TO RESTRAIN PT. PT IS VERY UPSET SAYING ITS BEUCASE SHE WANTS TO CHANGE THE JANNA ON HER TV AND WANTS TO DRINK WATER. PT WAS GIVEN HYDRATION AND A JANNA WAS FOUND THAT THE PATIENT IS WATCHING. AT AROUND 0440. PT STARTED TO CRY AND COMPLAIN ABOUT HER BACK PAIN. PT WAS OFFERED TO TO BE REPOSITIONED AND HAVE HER HEAD ELEVATED. PT WAS ALSO OFFERED HYDRATION. PT REQUESTED THIS NURSE LEAVE HER ALONE AND TO TURN OFF THE LIGHT. PT CONTINUES TO CRY. BED ALARM ON, BED IN LOWEST POSTION, CAMERA MONITORING ON.
[2020-11-09 04:32] LABS: Anion Gap 10 mmol/L (6-16); Blood Urea Nitrogen 8 mg/dL (8-24); Bun/Creatinine Ratio 8.9 (12.0-20.0); CO2, Blood 21 mmol/L (21-32); Calcium, Blood 8.5 mg/dL (8.5-10.1); Chloride, Blood 111 mmol/L (98-108); Glomerular Filtration Rate >60 (60-); Glucose, Blood 100 mg/dL (70-99); Potassium, Blood 3.2 mmol/L (3.5-5.5); Sodium, Blood 142 mmol/L (136-145)
--- NOTE | 2020-11-09 05:18 | NUR ---
PT BEHAVIOR 429 - HAULPAK DRIVER CALLED YOSI Rocha RN STATING PT OUT OF RESTRAINT. STAFF TO ROOM TO FIND L ARM HAD WRIGGLED FREE OF RESTRAINT. PT WAVING HER ARM IN THE AIR TAUNTING STAFF. SECURITY TO ROOM. ARM PLACED BACK IN RESTRAINTS. ALL RESTRAINTS RECHECKED. 045 - PT BEGINS SCREAMING AND CRYING AFTER INITALLY QUIETING DOWN POST IM ZYPREXA. 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 PT IS REMINDED THAT SHE IS HERE FOR AN SI ATTEMPT RELATED TO HER PAIN MEDICATION OVERDOSE. PT ADAMANTLY DENIES THIS BUT ALSO DENIES ANY BEHAVIORAL HEALTH OR HOSPITALIZATION RELATED TO SI, WHICH IS NOT TRUE AEB PREVIOUS HOPITALIZATION RECORDS. 0522 - PT HAS BEEN SCREAMING/CRYING NONSTOP SINCE 449 DESPITE MULTIPLE ATTEMPTS AT CALMING PT. PT ANGERING PATIENTS IN ROOMS CLOSE AND DISRUPTING UNIT MILIEU. THIS RN TO ROOM TO SIT INSIDE TO BE ABLE TO CLOSE DOOR TO ALLOW SOME REPRIEVE FOR OTHER PATIENTS. STAFF ATTEMPTING TO CALL FOR ORDERS.
--- NOTE | 2020-11-09 14:25 | NUR ---
Pt continues to be cheerful, cooperative. Talking with who is sitting on her bed with her.
--- NOTE | 2020-11-09 17:39 | NUR ---
Pt pulled IV out, and I was alerted by the camera equipment monitor phototypesetting. I entered the room, pt had pulled the IV and was holding pressure with a napkin. I applied gauze and coban. She was eager to be discharged home. I explained that we have called her , but no response. She said that he is hard of hearing and so we need to call him again. I called the number in the chart, both his cell number and the one listed as hers, but neither of them rang. His phone went directly to voice mail. I told the patient about this, and she became angry and said that we were not helping. She went outside the room and said that she was going to get on a computer to look up his chart and get his other number out of the chart. She is no longer on a hold. She was insistent since she could not access the computer that she was going to leave the hospital, walk home. We have left messages on her 's voice mail earlier, asking for him to come and get her for discharge, and then again at this time to inform him that she made the choice to leave the hospital alone without waiting for him.
--- NOTE | 2020-11-09 17:40 | NUR ---
Spoke with Primary RN Romy and discussed case. Pt is D/C and would benefit from completing new POLST. Existing POLST is incomplete. Pt sitting on edge of bed and is A&O. Engaged in therapeutic discussion regarding completing POLST. Pt agreeable to complete new POLST. Educated on life sustaining measures including risk factors and implications of CPR. Educated on each section to complete and options to choose from on POLST. Pt V/U. Per Pt's request, assisted her with completing POLST. Pt wishes are CPR and Full Treatment. Pt expresses appreciation and reports no other concerns at this time. Dr Rivera signs POLST. Obtained copy of POLST and will deliver to medical records. Provided Pt with original POLST and instructed to hang on her refridgerator at home. Palliative Care will remain available.
== END 2020-11-09 17:41 | disposition home or self-care (01) | DRG 917 ==
LOC: ER 13:09 → ERHOLD 13:10 → PCU 13:10 → ERHOLD 13:10 → PCU 18:24
PROVIDERS: Emergency Medicine; ADMIT Internal Medicine
DX: T50.912A Poisoning by multiple unspecified drugs, medicaments and biological substances, intentional self-harm, initial encounter (principal); G92 Toxic encephalopathy; J96.01 Acute respiratory failure with hypoxia; R94.31 Abnormal electrocardiogram [ECG] [EKG]; F41.9 Anxiety disorder, unspecified; F32.9 Major depressive disorder, single episode, unspecified; I12.9 Hypertensive chronic kidney disease with stage 1 through stage 4 chronic kidney disease, or unspecified chronic kidney disease; N18.30 Chronic kidney disease, stage 3 unspecified; Z98.890 Other specified postprocedural states; Z78.1 Physical restraint status; Z79.899 Other long term (current) drug therapy; Z86.73 Personal history of transient ischemic attack (TIA), and cerebral infarction without residual deficits; Z88.8 Allergy status to other drugs, medicaments and biological substances; Z88.5 Allergy status to narcotic agent
CPT/HCPCS: 36415; 36600; 51702; 70450; 71045; 80047; 80048; 80053; 82803; 83735; 84100; 84443; 84484; 85014; 85025; 93005; 93010; 96365; 96366; 96375; 99285-25; A9270; G0480; J0132; J1200; J1630; J1650; J2310; J3480; J7030; J7060

== ENCOUNTER → 2020-11-18 | Outpatient (CLI) | payer MEDICARE ==
[~2020-11-18] MED LIST changes: +Bentyl20 MG PO; +DULOXETINE HCL60 M1 PO; +ESTRADIOL0.5 MG PO; +NEURONTIN300 MG PO; +PANTOPRAZOLE SO40 M2 PO; +Prinivil10 MG PO
== END | disposition home or self-care (01) ==
LOC: LAB 18:01 → LAB SHORT 18:01
DX: R07.0 Pain in throat (principal)
CPT/HCPCS: 87081

== ENCOUNTER 2021-02-06 21:02 | Observation (INO) | payer MEDICARE ==
[~2021-02-06] VITALS: Ht 170.2 cm; Wt 67.5 kg
[2021-02-06 21:31] LABS: BASOPHILS ABSOLUTE AUTO 0.04 K/mm3 (0.00-0.23); BASOPHILS PERCENT AUTO 1 % (0-2); EOSINOPHILS PERCENT AUTO 2 % (0-6); Hematocrit 39.2 % (33.0-51.0); Hemoglobin 12.7 g/dL (11.5-16.0); IMMATURE GRAN ABSOLUTE AUTO 0.01 K/mm3 (0.00-0.10); IMMATURE GRAN PERCENT AUTO 0 % (0-1); LYMPHOCYTES ABSOLUTE AUTO 1.98 K/mm3 (0.84-5.20); LYMPHOCYTES PERCENT AUTO 30 % (21-46); MONOCYTES ABSOLUTE AUTO 0.46 K/mm3 (0.16-1.47); MONOCYTES PERCENT AUTO 7 % (4-13); Mean Corpuscular HGB 29.5 pg (26.0-34.0); Mean Corpuscular HGB Conc 32.4 g/dL (31.5-36.5); Mean Corpuscular Volume 91 fL (80-100); Mean Platelet Volume 10.8 fL (9.1-12.4); NEUTROPHILS ABSOLUTE AUTO 3.95 K/mm3 (1.96-9.15); NEUTROPHILS PERCENT AUTO 60 % (41-73); Platelet Count 212 K/mm3 (150-400); RDW Coefficient Variation 13.4 % (11.7-14.2); RDW Standard Deviation 45.1 fL (35.1-46.3); Red Blood Cell Count 4.31 M/mm3 (3.80-5.20); White Blood Cell Count 6.54 K/mm3 (4.00-11.30)
[2021-02-06 21:49] LABS: Alanine Aminotransfer (ALT/SGP 19 U/L (12-78); Albumin, Blood 3.7 g/dL (3.4-5.0); Alk Phos 109 U/L (50-136); Anion Gap 8 mmol/L (6-16); Aspartate Aminotrans (AST/SGOT 15 U/L (12-37); Bilirubin, Total 0.3 mg/dL (0.1-1.0); Blood Urea Nitrogen 15 mg/dL (8-24); Bun/Creatinine Ratio 12.2 (12.0-20.0); CO2, Blood 27 mmol/L (21-32); Calcium, Blood 9.8 mg/dL (8.5-10.1); Chloride, Blood 107 mmol/L (98-108); Creatinine, Blood 1.23 mg/dL (0.40-1.00); Globulin, Blood 3.8 g/dL (2.2-4.0); Glomerular Filtration Rate 43 (60-); Glucose, Blood 92 mg/dL (70-99); Potassium, Blood 3.4 mmol/L (3.5-5.5); Sodium, Blood 142 mmol/L (136-145); Total Protein, Blood 7.5 g/dL (6.4-8.2); Troponin I <0.015 ng/mL (0.000-0.040)
--- NOTE | 2021-02-07 02:47 | NUR ---
0100 CARE ASSUMPTION PT ARRIVED TO UNIT AND TRANSFERED SELF FROM ER STRETCHER TO PCU BED. PT DENYING ANY CP OR PRESSURE AT TIME OF SRRIVAL. VSS W O2 SATS >94% ON RM AIR. TELE SHOWING SR IN THE 60'S. PT ABLE TO ANSWER ALL ADMITTING QUESTIONS AND DENIED ANY FURTHER NEEDS.
[2021-02-07 05:41] LABS: BASOPHILS ABSOLUTE AUTO 0.03 K/mm3 (0.00-0.23); BASOPHILS PERCENT AUTO 1 % (0-2); EOSINOPHILS ABSOLUTE AUTO 0.15 K/mm3 (0.00-0.68); EOSINOPHILS PERCENT AUTO 3 % (0-6); Hematocrit 36.6 % (33.0-51.0); IMMATURE GRAN ABSOLUTE AUTO 0.01 K/mm3 (0.00-0.10); IMMATURE GRAN PERCENT AUTO 0 % (0-1); LYMPHOCYTES ABSOLUTE AUTO 1.55 K/mm3 (0.84-5.20); LYMPHOCYTES PERCENT AUTO 33 % (21-46); MONOCYTES ABSOLUTE AUTO 0.56 K/mm3 (0.16-1.47); MONOCYTES PERCENT AUTO 12 % (4-13); Mean Corpuscular HGB 30.3 pg (26.0-34.0); Mean Corpuscular HGB Conc 32.8 g/dL (31.5-36.5); Mean Corpuscular Volume 92 fL (80-100); Mean Platelet Volume 10.8 fL (9.1-12.4); NEUTROPHILS ABSOLUTE AUTO 2.41 K/mm3 (1.96-9.15); NEUTROPHILS PERCENT AUTO 51 % (41-73); Platelet Count 164 K/mm3 (150-400); RDW Coefficient Variation 13.5 % (11.7-14.2); RDW Standard Deviation 46.1 fL (35.1-46.3); Red Blood Cell Count 3.96 M/mm3 (3.80-5.20); White Blood Cell Count 4.71 K/mm3 (4.00-11.30)
[2021-02-07 06:01] LABS: Anion Gap 4 mmol/L (6-16); Blood Urea Nitrogen 15 mg/dL (8-24); Bun/Creatinine Ratio 12.4 (12.0-20.0); CHOL/HDL RATIO 3.5; CO2, Blood 27 mmol/L (21-32); Calcium, Blood 9.4 mg/dL (8.5-10.1); Chloride, Blood 111 mmol/L (98-108); Cholesterol 266 mg/dL (50-200); Creatinine, Blood 1.21 mg/dL (0.40-1.00); Glomerular Filtration Rate 44 (60-); Glucose, Blood 89 mg/dL (70-99); HDL Cholesterol 76 mg/dL (>39); LDL/HDL RATIO 2.3; Low Density Lipoprotein Chol 174 mg/dL (0-110); Potassium, Blood 4.7 mmol/L (3.5-5.5); Sodium, Blood 142 mmol/L (136-145); Triglycerides 81 mg/dL (30-160); Troponin I <0.015 ng/mL (0.000-0.040); Very Low Density Lipoprot Chol 16 mg/dL (6-32)
--- NOTE | 2021-02-07 06:16 | NUR ---
BUGGY OPERATOR SUMMARY PT HAS REMANIED AXO X4 AND USES HER CALL LIGHT TO MAKE HER NEEDS KNOWN. PT HAS DENIED ANY CP OR PRESSURE THIS SHIFT. PT HAS AMBULATED UNASSISTED W NO SOB OR PAIN THIS SHIFT. TELE SHOWING SR IN THE 60'S THIS SHIFT. BP WNL AND STABLE. O2 SATS >94% ON RM AIR. PT SLEEPING COMFORTABLY FOR MOST OF THE SHIFT.
--- NOTE | 2021-02-07 18:22 | NUR ---
SHIFT SUMMARY PT REMAINED ALERT AND ORIENTED X4 AND WAS PLEASANT/COOPERATIVE W/ CARE. PT DENIED CHEST PAIN/PRESSURE T/O SHIFT. VITAL SIGNS REMAINED STABEL. SPO2 MID 90'S VIA RA. PT ABLE TO AMBULATE TO BATHROOM ON OWN AND DENIES SHORTNESS OF BREATH WHEN DOING SO. FIRST PART OF STRESS TEST DONE TODAY APPROX 1430, SECOND PARRT OF TEST WILL BE DONE TOMORROW AFTERNOON. THIS NURSE WILL PASS ON REPORT NPO STATUS AFTER BREAKFAST REQUESTED BY NUCLEAR MEDICINE STAFF. RIGHT IV IN AC IS SALINE LOCKED. NO ACUTE CHANGES NOTED. CALL LIGHT IN REACH. WILL CONTINUE TO MONITOR UNTIL REPORT GIVEN.
[2021-02-07 18:26] LABS: Bun/Creatinine Ratio 13.1 (12.0-20.0); Creatinine, Blood 1.07 mg/dL (0.40-1.00); Potassium, Blood 3.9 mmol/L (3.5-5.5)
[2021-02-08 03:48] LABS: Bun/Creatinine Ratio 12.1 (12.0-20.0); Calcium, Blood 8.9 mg/dL (8.5-10.1); Creatinine, Blood 1.24 mg/dL (0.40-1.00); Potassium, Blood 4.6 mmol/L (3.5-5.5)
--- NOTE | 2021-02-08 07:25 | NUR ---
PRECIOUS HAD A QUIET NIGHT AND SLEPT WELL UNTIL WIRE SAWYER WHEN STAFF AND LAB BEGAN TO WAKE HER AROUND 0400. SHE IS ALERT AND ORIENTED, PLEASANT AND COOPERATIVE WITH CARE. NO COMPLAINTS OF CHEST PAIN OR PRESSURE OVERNIGHT. PATIENT AWARE SHE WILL BE NPO AFTER BREAKFAST WITH NO CAFFIENE/CHOCOLATE AT ALL YESTERDAY. READY FOR STRESS TEST CONCLUSION
[2021-02-08] MEDS ORDERED: ASPI81CH PO (17:27)
[2021-02-08] MEDS ORDERED: ATOR40TA PO (17:28)
--- NOTE | 2021-02-08 18:25 | NUR ---
PT IV REMOVED AND PRESSURE DRESSED, NO ACTIVE BLEEDING. PT PROVIDED WITH D/C TEACHING AND NEW MEDICATION ADMINISTRATION, SHE EXPREESSED UNDERSTANDING OF D/C TEACHING. PT MEDICATIONS ARE FAXED TO [facility] PER HER REQUEST. PT WAS WHEELED TO CAR IN PARKING LOT. ALL BELONGINGS RETURNED. PT DENIES FURTHER NEEDS OR CONCERNS
--- NOTE | 2021-02-08 18:35 | NUR ---
PT LEFT LAB ORDER BEHIND, PT WAS CALLED NO ASNWER, MESSAGE LEFT ON MACHINE, LAB ORDER IS LEFT WITH VIOLIN TUTOR FOR PT TO PSYCHOLOGY INTERN
== END 2021-02-08 18:02 | disposition home or self-care (01) ==
LOC: ER 21:02 → PCU 02-07
PROVIDERS: Family Medicine; Physician Assistant; ADMIT Internal Medicine
DX: R07.2 Precordial pain (principal); N17.9 Acute kidney failure, unspecified; I25.2 Old myocardial infarction; I10 Essential (primary) hypertension; M81.0 Age-related osteoporosis without current pathological fracture; K21.9 Gastro-esophageal reflux disease without esophagitis; F41.8 Other specified anxiety disorders; F43.12 Post-traumatic stress disorder, chronic; K58.9 Irritable bowel syndrome, unspecified; E78.5 Hyperlipidemia, unspecified; Z91.51 Personal history of suicidal behavior; Z86.718 Personal history of other venous thrombosis and embolism; Z86.711 Personal history of pulmonary embolism; Z88.5 Allergy status to narcotic agent; Z88.2 Allergy status to sulfonamides; Z88.8 Allergy status to other drugs, medicaments and biological substances; Z98.1 Arthrodesis status; Z23 Encounter for immunization
CPT/HCPCS: 36415; 71046; 78452; 80048; 80053; 80061; 84484; 85025; 90686; 93005; 93010; 93017; 96372; 96374; 96376; 99285-25; A9270; A9500; C9113; G0008; G0378; J0706; J1650; J2785; J7030

== ENCOUNTER 2021-03-01 15:03 | Emergency (ER) | payer MEDICARE ==
[~2021-03-01] VITALS: Ht 165.1 cm; Wt 69.0 kg
[~2021-03-01 15:03] MED LIST changes: +ASPI81CH PO; +ATOR40TA PO
== END 2021-03-01 17:03 | disposition home or self-care (01) ==
LOC: ER 15:03
DX: S51.811A Laceration without foreign body of right forearm, initial encounter (principal); I10 Essential (primary) hypertension; I48.92 Unspecified atrial flutter; Z23 Encounter for immunization; Z86.73 Personal history of transient ischemic attack (TIA), and cerebral infarction without residual deficits; Z86.711 Personal history of pulmonary embolism; I25.2 Old myocardial infarction; Z88.5 Allergy status to narcotic agent; Z91.048 Other nonmedicinal substance allergy status; Z88.8 Allergy status to other drugs, medicaments and biological substances; Z79.82 Long term (current) use of aspirin; Z79.899 Other long term (current) drug therapy; W26.9XXA Contact with unspecified sharp object(s), initial encounter
CPT/HCPCS: 90471; 90714; 99282-25

== ENCOUNTER 2021-04-02 10:53 | Emergency (ER) | payer MEDICARE ==
[~2021-04-02] VITALS: Ht 165.1 cm; Wt 68.5 kg
[2021-04-02 12:05] LABS: Influenza A, PCR NEGATIVE (NEGATIVE); Influenza B, PCR NEGATIVE (NEGATIVE); Resp Syncytial Virus, PCR NEGATIVE (NEGATIVE); SARS-Cov-2 (COVID-19) PCR, MMC NEGATIVE (NEGATIVE)
[2021-04-02] MEDS ORDERED: DEXT30SU PO (12:51)
[2021-04-02] MEDS ORDERED: SUDANYL PE5 MG PO (12:51)
== END 2021-04-02 12:56 | disposition home or self-care (01) ==
LOC: ER 10:53
PROVIDERS: Physician Assistant
DX: J06.9 Acute upper respiratory infection, unspecified (principal); Z20.822 Contact with and (suspected) exposure to COVID-19; Z88.5 Allergy status to narcotic agent; I10 Essential (primary) hypertension; Z79.899 Other long term (current) drug therapy
CPT/HCPCS: 0241U; 99284

== ENCOUNTER 2021-05-02 19:49 | Emergency (ER) | payer MEDICARE ==
[~2021-05-02] VITALS: Ht 165.1 cm; Wt 69.0 kg
[~2021-05-02 19:49] MED LIST changes: +DEXT30SU PO; +SUDANYL PE5 MG PO
== END 2021-05-02 22:24 | disposition left against medical advice (07) ==
LOC: ER 19:49
DX: M25.531 Pain in right wrist (principal); M25.551 Pain in right hip; Z53.21 Procedure and treatment not carried out due to patient leaving prior to being seen by health care provider
CPT/HCPCS: 73100; 99283-25

== ENCOUNTER 2021-06-05 11:45 | Emergency (ER) | payer MEDICARE ==
[~2021-06-05] VITALS: Ht 165.1 cm; Wt 68.0 kg
== END 2021-06-05 12:26 | disposition home or self-care (01) ==
LOC: ER 11:45
DX: S61.210A Laceration without foreign body of right index finger without damage to nail, initial encounter (principal); I25.2 Old myocardial infarction; I10 Essential (primary) hypertension; F43.9 Reaction to severe stress, unspecified; Z88.8 Allergy status to other drugs, medicaments and biological substances; Z88.5 Allergy status to narcotic agent; Z79.899 Other long term (current) drug therapy; Z85.3 Personal history of malignant neoplasm of breast; Z79.82 Long term (current) use of aspirin; Z86.73 Personal history of transient ischemic attack (TIA), and cerebral infarction without residual deficits; W26.8XXA Contact with other sharp object(s), not elsewhere classified, initial encounter
CPT/HCPCS: 12001; 99282-25

== ENCOUNTER 2021-06-20 17:51 | Emergency (ER) | payer MEDICARE ==
[~2021-06-20] VITALS: Ht 165.1 cm; Wt 70.3 kg
== END 2021-06-20 19:48 | disposition home or self-care (01) ==
LOC: ER 17:51
DX: S60.211A Contusion of right wrist, initial encounter (principal); Z88.5 Allergy status to narcotic agent; Z79.899 Other long term (current) drug therapy; W22.8XXA Striking against or struck by other objects, initial encounter
CPT/HCPCS: 73110; 99284-25

== ENCOUNTER 2021-08-17 11:08 | Emergency (ER) | payer MEDICARE ==
[~2021-08-17] VITALS: Ht 165.1 cm; Wt 70.8 kg
[2021-08-17] MEDS ORDERED: LIDO700A20 TOP (12:52)
[2021-08-17] MEDS ORDERED: CYCL10 PO (12:52)
== END 2021-08-17 13:13 | disposition home or self-care (01) ==
LOC: ER 11:08
DX: M54.31 Sciatica, right side (principal); Z88.5 Allergy status to narcotic agent; Z88.8 Allergy status to other drugs, medicaments and biological substances; Z79.899 Other long term (current) drug therapy
CPT/HCPCS: J1885

== ENCOUNTER 2021-11-10 00:21 | Observation (INO) | payer MEDICARE ==
[~2021-11-10] VITALS: Ht 165.1 cm; Wt 69.4 kg
[~2021-11-10 00:21] MED LIST changes: +LIDO700A20 TOP
[2021-11-10] MEDS ORDERED: CLONAZEPAM1 MG PO (00:29)
[2021-11-10] MEDS ORDERED: CLIMARA1 EACH TOP (00:29)
[2021-11-10] MEDS ORDERED: HYDROCODONE-AC1 EAC7 PO (00:29)
[2021-11-10] MEDS ORDERED: LINZESS290 MCG PO (00:30)
[2021-11-10] MEDS ORDERED: NEURONTIN300 MG PO (00:30)
[2021-11-10] MEDS ORDERED: LISI20 PO (00:30)
[2021-11-10 00:46] LABS: BASOPHILS ABSOLUTE AUTO 0.03 K/mm3 (0.00-0.23); BASOPHILS PERCENT AUTO 0 % (0-2); EOSINOPHILS ABSOLUTE AUTO 0.19 K/mm3 (0.00-0.68); EOSINOPHILS PERCENT AUTO 3 % (0-6); Hemoglobin 12.5 g/dL (11.5-16.0); IMMATURE GRAN ABSOLUTE AUTO 0.02 K/mm3 (0.00-0.10); IMMATURE GRAN PERCENT AUTO 0 % (0-1); LYMPHOCYTES ABSOLUTE AUTO 2.11 K/mm3 (0.84-5.20); LYMPHOCYTES PERCENT AUTO 28 % (21-46); MONOCYTES PERCENT AUTO 7 % (4-13); Mean Corpuscular HGB 30.8 pg (26.0-34.0); Mean Corpuscular HGB Conc 32.9 g/dL (31.5-36.5); Mean Corpuscular Volume 94 fL (80-100); Mean Platelet Volume 11.1 fL (9.1-12.4); NEUTROPHILS ABSOLUTE AUTO 4.83 K/mm3 (1.96-9.15); NEUTROPHILS PERCENT AUTO 63 % (41-73); Platelet Count 183 K/mm3 (150-400); RDW Coefficient Variation 13.2 % (11.7-14.2); RDW Standard Deviation 45.1 fL (35.1-46.3); Red Blood Cell Count 4.06 M/mm3 (3.80-5.20); White Blood Cell Count 7.68 K/mm3 (4.00-11.30)
[2021-11-10 00:58] LABS: Albumin, Blood 3.5 g/dL (3.4-5.0); Albumin/Globulin Ratio 1.1 (0.8-1.8); Bilirubin, Total 0.4 mg/dL (0.1-1.0); Bun/Creatinine Ratio 7.3 (12.0-20.0); Calcium, Blood 9.5 mg/dL (8.5-10.1); Creatinine, Blood 1.37 mg/dL (0.40-1.00); Globulin, Blood 3.3 g/dL (2.2-4.0); Potassium, Blood 3.9 mmol/L (3.5-5.5); Total Protein, Blood 6.8 g/dL (6.4-8.2)
[2021-11-10 01:08] LABS: Magnesium, Blood 2.4 mg/dL (1.6-2.4)
[2021-11-10] MEDS ORDERED: Bentyl20 MG PO (05:05)
[2021-11-10] MEDS ORDERED: MOBIC15 MG PO (05:06)
[2021-11-10] MEDS ORDERED: ESCI10 PO (05:07)
[2021-11-10] MEDS ORDERED: Robaxin750 MG PO (05:08)
--- NOTE | 2021-11-10 05:11 | NUR ---
ADMISSION: PATIENT IS RECIEVED FROM ER VIA STRETCHER. ABLE TO AMBULATE TO THE BED WITH A STEADY GAIT. REPORTS BEING DIZZY OCCASSIONALLY. PATIENT IS INSTRUCTED TO CALL FOR ASSIST OOB. VSS, REPORTS PAIN IN DIAPHRAM AREA 8/10 CONSTANT ACHE. PATIENT IS ORRIENTED TO ROOM AND CALL HECK.
--- NOTE | 2021-11-10 06:14 | NUR ---
SHIFT SUMMARY: PATIENT HAD FAIR EFFECT FROM GI COCTAIL, TYLENOL AND PROTONIX GIVEN FOR DIAPHRAM AREA PAIN. TROPONINS ARE STABLE, TELI IS IN PLACE, NSR RATE OF 79.
[2021-11-10 06:49] LABS: Albumin, Blood 3.4 g/dL (3.4-5.0); Anion Gap 6 mmol/L (6-16); Blood Urea Nitrogen 10 mg/dL (8-24); Bun/Creatinine Ratio 7.9 (12.0-20.0); CO2, Blood 26 mmol/L (21-32); Calcium, Blood 8.9 mg/dL (8.5-10.1); Chloride, Blood 110 mmol/L (98-108); Creatinine, Blood 1.27 mg/dL (0.40-1.00); Glomerular Filtration Rate 46 (60-); Glucose, Blood 105 mg/dL (70-99); Potassium, Blood 4.1 mmol/L (3.5-5.5); Sodium, Blood 142 mmol/L (136-145)
[2021-11-10 07:28] LABS: CHOL/HDL RATIO 3.4; Cholesterol 257 mg/dL (50-200); HDL Cholesterol 75 mg/dL (>39); LDL/HDL RATIO 2.1; Low Density Lipoprotein Chol 156 mg/dL (0-110); Triglycerides 128 mg/dL (30-160); Very Low Density Lipoprot Chol 25 mg/dL (6-32)
[2021-11-10] MEDS ORDERED: NITR.4SL SL (12:19)
[2021-11-10] MEDS ORDERED: FAMO20 PO (14:10)
--- NOTE | 2021-11-10 14:35 | NUR ---
DISCHARGE SUMMARY PATIENT IS ALERT AND ORIENTED. PATIENT HAS BEEN IND IN ROOM. PATIENT WAS ADMITTED FOR CHEST PAIN. PAIENT HAS HAD NO COMPLAINTS OF CP, OTHER PAIN, VOMITTING OR SOB THIS SHIFT. PATIENT WAS EXPERIENCING NAUSEA. MEDICATED PER EMAR. PATIENT WAS DISCHARGED HOME VIA . NO ACUTE EVENTS THIS SHIFT.
== END 2021-11-10 14:43 | disposition home or self-care (01) ==
LOC: ER 00:21 → MEDS 00:22
PROVIDERS: Family Medicine; Student in an Organized Health Care Education/Training Program; ADMIT Family Medicine
DX: I24.9 Acute ischemic heart disease, unspecified (principal); N17.9 Acute kidney failure, unspecified; I10 Essential (primary) hypertension; G89.29 Other chronic pain; F32.A Depression, unspecified; E78.00 Pure hypercholesterolemia, unspecified; I25.2 Old myocardial infarction; Z86.718 Personal history of other venous thrombosis and embolism; Z86.711 Personal history of pulmonary embolism; Z85.3 Personal history of malignant neoplasm of breast; Z88.5 Allergy status to narcotic agent; Z88.8 Allergy status to other drugs, medicaments and biological substances
CPT/HCPCS: 36415; 71045; 80053; 80061; 80069; 83735; 83880; 84484; 85025; 93005; 93010; 96372; 96374; 99285-25; A9270; C9113; G0378; J1650

== ENCOUNTER 2022-06-10 15:42 | Emergency (ER) | payer MEDICARE ==
[~2022-06-10] VITALS: Ht 167.6 cm; Wt 65.8 kg
[~2022-06-10 15:42] MED LIST changes: +CLIMARA1 EACH TOP; +CLONAZEPAM1 MG PO; +ESCI10 PO; +FAMO20 PO; +HYDROCODONE-AC1 EAC7 PO; +LINZESS290 MCG PO; +LISI20 PO; +MOBIC15 MG PO; +NITR.4SL SL; +Robaxin750 MG PO; +Voltaren100 GM TOP
== END 2022-06-10 17:57 | disposition home or self-care (01) ==
LOC: ER 15:42
DX: S50.12XA Contusion of left forearm, initial encounter (principal); M25.552 Pain in left hip; I10 Essential (primary) hypertension; M79.605 Pain in left leg; M54.2 Cervicalgia; W17.89XA Other fall from one level to another, initial encounter; Z79.899 Other long term (current) drug therapy; Z79.82 Long term (current) use of aspirin; Z53.29 Procedure and treatment not carried out because of patient's decision for other reasons
CPT/HCPCS: 72125; 99284-25

== ENCOUNTER 2022-08-14 21:33 | Emergency (ER) | payer MEDICARE ==
[~2022-08-14] VITALS: Ht 165.1 cm; Wt 65.8 kg
[2022-08-14 22:04] LABS: BASOPHILS ABSOLUTE AUTO 0.03 K/mm3 (0.00-0.23); BASOPHILS PERCENT AUTO 1 % (0-2); EOSINOPHILS PERCENT AUTO 2 % (0-6); Hematocrit 38.2 % (33.0-51.0); Hemoglobin 12.7 g/dL (11.5-16.0); IMMATURE GRAN ABSOLUTE AUTO 0.01 K/mm3 (0.00-0.10); IMMATURE GRAN PERCENT AUTO 0 % (0-1); LYMPHOCYTES ABSOLUTE AUTO 1.21 K/mm3 (0.84-5.20); LYMPHOCYTES PERCENT AUTO 19 % (21-46); MONOCYTES ABSOLUTE AUTO 0.49 K/mm3 (0.16-1.47); MONOCYTES PERCENT AUTO 8 % (4-13); Mean Corpuscular HGB 31.4 pg (26.0-34.0); Mean Corpuscular HGB Conc 33.2 g/dL (31.5-36.5); Mean Corpuscular Volume 95 fL (80-100); NEUTROPHILS ABSOLUTE AUTO 4.61 K/mm3 (1.96-9.15); NEUTROPHILS PERCENT AUTO 71 % (41-73); Platelet Count 144 K/mm3 (150-400); RDW Coefficient Variation 12.7 % (11.7-14.2); RDW Standard Deviation 44.5 fL (35.1-46.3); Red Blood Cell Count 4.04 M/mm3 (3.80-5.20); White Blood Cell Count 6.45 K/mm3 (4.00-11.30)
[2022-08-14 22:24] LABS: Albumin, Blood 3.6 g/dL (3.4-5.0); Albumin/Globulin Ratio 1.1 (0.8-1.8); Bilirubin, Total 0.6 mg/dL (0.1-1.0); Bun/Creatinine Ratio 15.7 (12.0-20.0); Calcium, Blood 9.3 mg/dL (8.5-10.1); Creatinine, Blood 1.08 mg/dL (0.40-1.00); Globulin, Blood 3.3 g/dL (2.2-4.0); Potassium, Blood 3.6 mmol/L (3.5-5.5); Total Protein, Blood 6.9 g/dL (6.4-8.2)
[2022-08-15 00:38] VITALS: BP 146/72
== END 2022-08-15 00:38 | disposition home or self-care (01) ==
LOC: ER 21:33
PROVIDERS: Emergency Medicine
DX: R79.89 Other specified abnormal findings of blood chemistry (principal); R11.0 Nausea; I10 Essential (primary) hypertension; I25.2 Old myocardial infarction; Z86.718 Personal history of other venous thrombosis and embolism; Z86.711 Personal history of pulmonary embolism; Z86.73 Personal history of transient ischemic attack (TIA), and cerebral infarction without residual deficits; Z88.5 Allergy status to narcotic agent; Z91.041 Radiographic dye allergy status; Z79.82 Long term (current) use of aspirin; Z79.899 Other long term (current) drug therapy
CPT/HCPCS: 71045; 80053; 83690; 84484; 85025; 93005; 93010; 96374; 96375; 99285-25; A9270; J2405; J3010

== ENCOUNTER 2022-12-21 21:03 | Emergency (ER) | payer MEDICARE ==
[~2022-12-21] VITALS: Ht 165.1 cm; Wt 69.0 kg
[~2022-12-21 21:03] MED LIST changes: +ESCITALOPRAM OX20 M1 PO
[2022-12-21] MEDS ORDERED: AMITRIPTYLINE150 M1 PO (21:41)
[2022-12-21] MEDS ORDERED: BUSPIRONE HCL7.5 M1 PO (21:42)
[2022-12-21] MEDS ORDERED: Bentyl20 MG PO (21:43)
[2022-12-21] MEDS ORDERED: PREG75 PO (21:45)
[2022-12-21 22:09] LABS: BASOPHILS ABSOLUTE AUTO 0.02 K/mm3 (0.00-0.23); BASOPHILS PERCENT AUTO 0 % (0-2); EOSINOPHILS ABSOLUTE AUTO 0.09 K/mm3 (0.00-0.68); EOSINOPHILS PERCENT AUTO 2 % (0-6); Hematocrit 33.6 % (33.0-51.0); Hemoglobin 11.2 g/dL (11.5-16.0); IMMATURE GRAN ABSOLUTE AUTO 0.01 K/mm3 (0.00-0.10); IMMATURE GRAN PERCENT AUTO 0 % (0-1); LYMPHOCYTES ABSOLUTE AUTO 1.17 K/mm3 (0.84-5.20); LYMPHOCYTES PERCENT AUTO 24 % (21-46); MONOCYTES ABSOLUTE AUTO 0.36 K/mm3 (0.16-1.47); MONOCYTES PERCENT AUTO 8 % (4-13); Mean Corpuscular HGB 31.4 pg (26.0-34.0); Mean Corpuscular HGB Conc 33.3 g/dL (31.5-36.5); Mean Corpuscular Volume 94 fL (80-100); Mean Platelet Volume 10.5 fL (9.1-12.4); NEUTROPHILS ABSOLUTE AUTO 3.17 K/mm3 (1.96-9.15); NEUTROPHILS PERCENT AUTO 66 % (41-73); Platelet Count 145 K/mm3 (150-400); RDW Coefficient Variation 14.2 % (11.7-14.2); RDW Standard Deviation 48.9 fL (35.1-46.3); Red Blood Cell Count 3.57 M/mm3 (3.80-5.20); White Blood Cell Count 4.82 K/mm3 (4.00-11.30)
[2022-12-21 22:22] LABS: Albumin, Blood 2.8 g/dL (3.4-5.0); Albumin/Globulin Ratio 0.8 (0.8-1.8); Bilirubin, Total 0.3 mg/dL (0.1-1.0); Bun/Creatinine Ratio 21.4 (12.0-20.0); Calcium, Blood 8.4 mg/dL (8.5-10.1); Creatinine, Blood 1.12 mg/dL (0.40-1.00); Globulin, Blood 3.3 g/dL (2.2-4.0); Potassium, Blood 3.8 mmol/L (3.5-5.5); Total Protein, Blood 6.1 g/dL (6.4-8.2)
[2022-12-22] MEDS ORDERED: PANT40 PO (01:38)
[2022-12-22 02:45] VITALS: BP 107/65
== END 2022-12-22 04:05 | disposition home or self-care (01) ==
LOC: ER 21:03
PROVIDERS: Emergency Medicine
DX: K21.9 Gastro-esophageal reflux disease without esophagitis (principal); Z88.8 Allergy status to other drugs, medicaments and biological substances; Z88.5 Allergy status to narcotic agent; Z79.899 Other long term (current) drug therapy; I10 Essential (primary) hypertension; I48.92 Unspecified atrial flutter; F43.10 Post-traumatic stress disorder, unspecified; Z85.3 Personal history of malignant neoplasm of breast; I25.2 Old myocardial infarction
CPT/HCPCS: 71046; 71275; 80053; 83690; 84484; 85025; 85379; 93005; 93010; 96374-59; 96375-59; 99285-25; A9270; C9113; J1200; J2930; Q9967

== ENCOUNTER 2023-03-24 15:50 | Emergency (ER) | payer MEDICARE ==
[~2023-03-24] VITALS: Ht 165.1 cm; Wt 69.4 kg
[~2023-03-24 15:50] MED LIST changes: +AMITRIPTYLINE150 M1 PO; +BUSPIRONE HCL7.5 M1 PO; +PREG75 PO
[2023-03-24 16:17] LABS: BASOPHILS ABSOLUTE AUTO 0.04 K/mm3 (0.00-0.23); BASOPHILS PERCENT AUTO 1 % (0-2); EOSINOPHILS ABSOLUTE AUTO 0.12 K/mm3 (0.00-0.68); EOSINOPHILS PERCENT AUTO 2 % (0-6); Hematocrit 44.7 % (33.0-51.0); Hemoglobin 14.6 g/dL (11.5-16.0); IMMATURE GRAN ABSOLUTE AUTO 0.02 K/mm3 (0.00-0.10); IMMATURE GRAN PERCENT AUTO 0 % (0-1); LYMPHOCYTES ABSOLUTE AUTO 1.16 K/mm3 (0.84-5.20); LYMPHOCYTES PERCENT AUTO 18 % (21-46); MONOCYTES PERCENT AUTO 8 % (4-13); Mean Corpuscular HGB 30.1 pg (26.0-34.0); Mean Corpuscular HGB Conc 32.7 g/dL (31.5-36.5); Mean Corpuscular Volume 92 fL (80-100); Mean Platelet Volume 10.7 fL (9.1-12.4); NEUTROPHILS PERCENT AUTO 72 % (41-73); Platelet Count 236 K/mm3 (150-400); RDW Coefficient Variation 13.8 % (11.7-14.2); RDW Standard Deviation 46.8 fL (35.1-46.3); Red Blood Cell Count 4.85 M/mm3 (3.80-5.20); White Blood Cell Count 6.64 K/mm3 (4.00-11.30)
[2023-03-24 16:29] LABS: Albumin, Blood 3.8 g/dL (3.4-5.0); Albumin/Globulin Ratio 0.9 (0.8-1.8); Bilirubin, Total 0.6 mg/dL (0.1-1.0); Bun/Creatinine Ratio 14.3 (12.0-20.0); Calcium, Blood 9.5 mg/dL (8.5-10.1); Creatinine, Blood 1.54 mg/dL (0.40-1.00); Globulin, Blood 4.3 g/dL (2.2-4.0); Magnesium, Blood 2.5 mg/dL (1.6-2.4); Potassium, Blood 4.1 mmol/L (3.5-5.5); Total Protein, Blood 8.1 g/dL (6.4-8.2)
[2023-03-24 18:14] LABS: Influenza A, PCR NEGATIVE (NEGATIVE); Influenza B, PCR NEGATIVE (NEGATIVE); Resp Syncytial Virus, PCR NEGATIVE (NEGATIVE); SARS-Cov-2 (COVID-19) PCR, MMC NEGATIVE (NEGATIVE)
[2023-03-24 20:08] VITALS: BP 136/70
== END 2023-03-24 20:10 | disposition home or self-care (01) ==
LOC: ER 15:50
PROVIDERS: Emergency Medicine
DX: E86.0 Dehydration (principal); R53.1 Weakness; I10 Essential (primary) hypertension; I25.2 Old myocardial infarction; I48.92 Unspecified atrial flutter; Z88.5 Allergy status to narcotic agent; Z88.6 Allergy status to analgesic agent; Z88.8 Allergy status to other drugs, medicaments and biological substances; Z79.899 Other long term (current) drug therapy
CPT/HCPCS: 0241U; 71045; 80053; 83690; 83735; 84145; 85025; 93005; 93010; 99285-25; A9270; J7030

== ENCOUNTER 2023-06-10 20:03 | Emergency (ER) | payer OTHER ==
[~2023-06-10] VITALS: Ht 165.1 cm; Wt 68.0 kg
[~2023-06-10 20:03] MED LIST changes: +ESTRADIOL PO; +Magic Bullet10 MG PR; +Magnesium Citr296 ML PO; +Norco 10-325 T1 EACH PO; +ONDA4
[2023-06-10 20:22] VITALS: BP 141/89
[2023-06-10] MEDS ORDERED: Tetanus and Diphtheria Toxoid 0.5 ML INJ IM ONE (22:15)
[2023-06-10] MEDS ORDERED: Amoxicillin/Clavulanate K 875 MG Tab PO ONE (22:15)
[2023-06-10] MEDS ORDERED: AMOCLA875 PO (23:08)
[2023-06-10] MEDS ORDERED: RX Prepack 6 Tabs Oxycodone 5mg UD ONE (23:35)
== END 2023-06-10 23:37 | disposition home or self-care (01) ==
LOC: ER 20:03
DX: S62.636B Displaced fracture of distal phalanx of right little finger, initial encounter for open fracture (principal); I10 Essential (primary) hypertension; G47.00 Insomnia, unspecified; I48.92 Unspecified atrial flutter; F43.10 Post-traumatic stress disorder, unspecified; I25.2 Old myocardial infarction; Z86.73 Personal history of transient ischemic attack (TIA), and cerebral infarction without residual deficits; Z86.718 Personal history of other venous thrombosis and embolism; Z79.1 Long term (current) use of non-steroidal anti-inflammatories (NSAID); Z79.899 Other long term (current) drug therapy; Z88.5 Allergy status to narcotic agent; Z88.8 Allergy status to other drugs, medicaments and biological substances; Z91.041 Radiographic dye allergy status; W54.0XXA Bitten by dog, initial encounter
CPT/HCPCS: 29130; 73140; 90471; 90714; 99283-25; A9270